=== PATIENT | female | born 1970 | race Caucasian/White ===

== ENCOUNTER 2021-06-16 08:09 | Day surgery (SDC) | payer OTHER ==
[~2021-06-16] VITALS: Ht 168 cm; Wt 114.0 kg
[~2021-06-16 08:09] MED LIST: ACETAMINOPHEN325 MG PO; CELECOXIB200 MG PO; CENTRUM CHEWAB1 EAC2 PO; FAMOTIDINE40 MG PO; LEVOTHYROXINE100 MCG PO; PERCOCET 5-3251 EACH PO; PERCOCET 5/3251 TAB PO; PROZAC20 MG PO; XARELTO10 MG PO
[2021-06-17 06:59] LABS: BASOPHIL 0.2 % (0-2); EOSINOPHIL 0.2 % (0-5); HCT 37.5 % (37.0-47.0); LYMPHOCYTE 17.5 % (15-48); MCH 28.6 pg (25.0-31.0); MCV 89.3 fL (78.0-100.0); MONOCYTE 9.6 % (0-12); MPV 11.4 fL (6.0-9.5); NRBC 0; PLT 190 K/uL (150-400); RDW 14.2 % (11.5-14.0); WBC 9.9 K/uL (4.0-10.5)
[2021-06-17 07:15] LABS: BUN/CREAT RATIO (CALC) 16.9 RATIO; CREATININE 0.65 mg/dL (0.51-0.95); POTASSIUM 4.6 mmol/L (3.5-5.1)
[2021-06-17] MEDS ORDERED: ASPIRIN81 MG PO (08:57)
[2021-06-17] MEDS ORDERED: FEOSOL325 MG PO (08:57)
--- NOTE | 2021-06-17 12:19 | NUR ---
PT REQUESTED MOT TO HOME. SENT HER REFERRAL TO [facility] AT [phone]. [facility] TO DELIVER A [facility]. PT SIGNED CHOICE FORM.
== END 2021-06-17 14:29 | disposition home or self-care (01) ==
LOC: FAS 08:09 → FMS 08:09 → FAS 06-17 14:29
PROVIDERS: Orthopaedic Surgery
DX: T84.032A Mechanical loosening of internal right knee prosthetic joint, initial encounter (principal); M23.51 Chronic instability of knee, right knee; E03.9 Hypothyroidism, unspecified; F41.9 Anxiety disorder, unspecified; F32.9 Major depressive disorder, single episode, unspecified; Z79.891 Long term (current) use of opiate analgesic; Z79.899 Other long term (current) drug therapy
CPT/HCPCS: 36415; 73560; 80048; 85025; 86850; 86900; 86901; 94010; 94760; 94762; 97110; 97116; 97161; 97166; 97535; C1713; C1776; J0171; J0461; J0697; J1100; J1170; J1885; J2250; J2270; J2405; J2795; J3010; J7120